=== PATIENT | female | born 1970 | race Caucasian/White ===

== ENCOUNTER 2019-09-14 13:23 | Emergency (ER) | payer OTHER ==
[~2019-09-14] VITALS: Ht 165.1 cm; Wt 63.5 kg
[2019-09-14] MEDS ORDERED: NEURONTIN800 MG (14:13)
[2019-09-14] MEDS ORDERED: MEDROXYPROGESTE10 MG (14:13)
== END 2019-09-14 17:07 | disposition home or self-care (01) ==
LOC: ER 13:23
DX: D50.0 Iron deficiency anemia secondary to blood loss (chronic) (principal); R53.1 Weakness